=== PATIENT | male | born 1965 | race African-American/Black ===

== ENCOUNTER 2018-09-17 11:35 | Inpatient (IN) | payer OTHER ==
[2018-09-17 13:13] VITALS: BMI 26.6
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
[2018-09-17] MEDS ORDERED: IBUPROFEN 400 MG TABLET (FP) PO PRN (14:53)
[2018-09-17] MEDS ORDERED: MAGNESIUM HYDROX 2400MG/30ML ORAL SUSPENSION 30 ML CUP PO PRN (14:53)
[2018-09-17] MEDS ORDERED: P-EPHED 60MG/TRIPROLIDI 2.5MG TABLET PO PRN (14:53)
[2018-09-17] MEDS ORDERED: chlordiazePOXIDE HCL 25 MG CAPSULE PO PRN (14:53)
[2018-09-17] MEDS ORDERED: hydrOXYzine PAMOATE 25 MG CAPSULE (FP) PO PRN (14:53)
[2018-09-17] MEDS ORDERED: MAGNESIUM CITRATE 300 ML BOTTLE PO PRN (14:53)
[2018-09-17] MEDS ORDERED: guaiFENesin/D-METHORPHAN HB 10 ML UNIT-DOSE CUPS PO PRN (14:53)
[2018-09-17] MEDS ORDERED: ACETAMINOPHEN 325 MG TABLET (FP) PO PRN (14:53)
[2018-09-17] MEDS ORDERED: MENTHOL/PHENOL 1 EACH UD MM PRN (14:53)
[2018-09-17] MEDS ORDERED: LOPERAMIDE HCL 2 MG CAPSULE PO PRN (14:53)
[2018-09-17 18:10] LABS: URINE APPEARANCE SLCLOUDY; URINE BILIRUBIN NEGATIVE (<2.0 mg/dL); URINE COLOR LTYELLOW; URINE GLUCOSE (UA) NEGATIVE (NEGATIVE); URINE KETONE NEGATIVE (NEGATIVE); URINE LEUK ESTERASE 1+ (NEGATIVE); URINE NITRITE NEGATIVE (NEGATIVE); URINE PROTEIN NEGATIVE (NEGATIVE)
[2018-09-17 18:12] LABS: EPI CELLS RARE /HPF (FEW); URINE MUCUS RARE
[2018-09-17] MEDS: chlordiazePOXIDE HCL 25 MG CAPSULE PO SCH ×2 (18:36→22:50)
[2018-09-17] MEDS ORDERED: MELATONIN 5 MG TABLETS PO PRN (22:00)
[2018-09-17] MEDS: THIAMINE HCL 100 MG TABLET (FP) PO SCH (22:50)
[2018-09-17] MEDS: NICOTINE POLACRILEX 2 MG GUM BC PRN (22:52)
[2018-09-18] MEDS: chlordiazePOXIDE HCL 25 MG CAPSULE PO SCH ×4 (05:30→22:30)
[2018-09-18] MEDS: NICOTINE POLACRILEX 2 MG GUM BC PRN ×2 (05:36→10:07)
[2018-09-18] MEDS: PRENATAL VITAMINS W/ FOLIC ACID TABLET (FP) PO SCH (10:06)
[2018-09-18 10:38] LABS: HEMATOCRIT 42.7 % (35.4-49); HEMOGLOBIN 13.6 GM/dL (11.7-16.9); MCH 27.9 pg (25.7-33.7); MEAN CELL VOLUME 87.2 fl (80-96); PLATELET COUNT 332 K/MM3 (134-434); RBC 4.89 M/mm3 (4.00-5.60); WHITE BLOOD COUNT 8.6 K/mm3 (4.0-10.0)
[2018-09-18 10:40] LABS: ALBUMIN 3.3 g/dl (3.4-5.0); ALK PHOS 114 U/L (45-117); ANION GAP 9 MMOL/L (8-16); BILIRUBIN,TOTAL 0.3 mg/dL (0.2-1); BLOOD UREA NITROGEN 25 mg/dL (7-18); CHLORIDE 103 mmol/L (98-107); CO2 27 mmol/L (21-32); CREATININE 1.2 mg/dL (0.55-1.3); GLUCOSE,RANDOM 58 mg/dL (74-106); POTASSIUM 4.7 mmol/L (3.5-5.1); SGOT/AST 14 U/L (15-37); SGPT/ALT 26 U/L (13-61); SODIUM 139 mmol/L (136-145); TOT PROT 7.8 g/dl (6.4-8.2)
--- NOTE | 2018-09-18 14:43 | PN ---
S CIWA - CIWA Score Nausea/Vomitin-Mild Nausea/No Vomiting Muscle Tremors: 3 Anxiety: 2 Agitation: 2 Paroxysmal Sweats: 1-Minimal Palms Moist Orientation: 1-Uncertain about Date Tacttile Disturbances: 1-Very Mild Itch/Numbness Auditory Disturbances: 0-None Visual Disturbances: 0-None Headache: 1-Very Mild CIWA-Ar Total Score: 12 BHS Progress Note (SOAP) Subjective: tremor sweat restlessness anxiety gi distress Objective: 09/18/18 14:42 Vital Signs Temperature 97.5 F L 09/18/18 13:50 Pulse Rate 81 09/18/18 13:50 Respiratory Rate 20 09/18/18 13:50 Blood Pressure 133/89 09/18/18 13:50 O2 Sat by Pulse Oximetry (%) Laboratory Last Values WBC 8.6 K/mm3 (4.0-10.0) 09/18/18 07:10 RBC 4.89 M/mm3 (4.00-5.60) 09/18/18 07:10 Hgb 13.6 GM/dL (11.7-16.9) 09/18/18 07:10 Hct 42.7 % (35.4-49) 09/18/18 07:10 MCV 87.2 fl (80-96) 09/18/18 07:10 MCH 27.9 pg (25.7-33.7) 09/18/18 07:10 MCHC 32.0 g/dl (32.0-35.9) 09/18/18 07:10 RDW 15.0 % (11.9-15.9) 09/18/18 07:10 Plt Count 332 K/MM3 (134-434) D 09/18/18 07:10 MPV 10.0 fl (7.5-11.1) 09/18/18 07:10 Sodium 139 mmol/L (136-145) 09/18/18 07:10 Potassium 4.7 mmol/L (3.5-5.1) 09/18/18 07:10 Chloride 103 mmol/L (98-107) 09/18/18 07:10 Carbon Dioxide 27 mmol/L (21-32) 09/18/18 07:10 Anion Gap 9 MMOL/L (8-16) 09/18/18 07:10 BUN 25 mg/dL (7-18) H 12/03/18 07:10 Creatinine 1.2 mg/dL (0.55-1.3) 09/18/18 07:10 Creat Clearance w eGFR > 60 (>60) 09/18/18 07:10 Random Glucose 58 mg/dL (74-106) L 09/18/18 07:10 Calcium 9.0 mg/dL (8.5-10.1) 09/18/18 07:10 Total Bilirubin 0.3 mg/dL (0.2-1) 09/18/18 07:10 AST 14 U/L (15-37) L 09/18/18 07:10 ALT 26 U/L (13-61) 09/18/18 07:10 Alkaline Phosphatase 114 U/L (45-117) 09/18/18 07:10 Total Protein 7.8 g/dl (6.4-8.2) 09/18/18 07:10 Albumin 3.3 g/dl (3.4-5.0) L 09/18/18 07:10 Urine Color Ltyellow 09/17/18 15:33 Urine Appearance Slcloudy 09/17/18 15:33 Urine pH 6.0 (5.0-8.0) 09/17/18 15:33 Ur Specific [place] 1.015 (1.010-1.035) 09/17/18 15:33 Urine Protein Negative (NEGATIVE) 09/17/18 15:33 Urine Glucose (UA) Negative (NEGATIVE) 09/17/18 15:33 Urine Ketones Negative (NEGATIVE) 09/17/18 15:33 Urine Blood Negative (NEGATIVE) 09/17/18 15:33 Urine Nitrite Negative (NEGATIVE) 09/17/18 15:33 Urine Bilirubin Negative (<2.0 mg/dL) 09/17/18 15:33 Urine Urobilinogen 2.0 mg/dL (0.2-1.0) 09/17/18 15:33 Ur Leukocyte Esterase 1+ (NEGATIVE) H 09/17/18 15:33 Urine WBC (Auto) 12 /hpf (3-5) 09/17/18 15:33 Urine RBC (Auto) 1 /hpf (0-3) 09/17/18 15:33 Ur Epithelial Cells Rare /HPF (FEW) 09/17/18 15:33 Urine Mucus Rare 09/17/18 15:33 RPR Titer Nonreactive (NONREACTIVE) 09/18/18 07:10 lab noted Assessment: 09/18/18 14:42 withdrawal sx Plan: continue detox
[2018-09-18] MEDS: THIAMINE HCL 100 MG TABLET (FP) PO SCH (22:30)
[2018-09-19] MEDS: chlordiazePOXIDE HCL 25 MG CAPSULE PO SCH ×2 (05:33→10:31)
[2018-09-19] MEDS: NICOTINE POLACRILEX 2 MG GUM BC PRN ×3 (05:36→11:15)
[2018-09-19] MEDS: MAG HYDROX/AL HYDROX/SIMETH 30 ML UNIT-DOSE CUP PO PRN ×2 (08:57→14:38)
--- NOTE | 2018-09-19 10:21 | PN ---
S CIWA - CIWA Score Nausea/Vomitin-Mild Nausea/No Vomiting Muscle Tremors: 3 Anxiety: 1-Mildly Anxious Agitation: 2 Paroxysmal Sweats: 1-Minimal Palms Moist Orientation: 0-Oriented Tacttile Disturbances: 1-Very Mild Itch/Numbness Auditory Disturbances: 0-None Visual Disturbances: 0-None Headache: 1-Very Mild CIWA-Ar Total Score: 10 BHS Progress Note (SOAP) Subjective: tremor sweat restlessness mild gi distress Objective: 09/19/18 10:19 Vital Signs Temperature 98.2 F 09/19/18 09:10 Pulse Rate 85 09/19/18 09:10 Respiratory Rate 18 09/19/18 09:10 Blood Pressure 133/66 09/19/18 09:10 O2 Sat by Pulse Oximetry (%) Laboratory Last Values WBC 8.6 K/mm3 (4.0-10.0) 09/18/18 07:10 RBC 4.89 M/mm3 (4.00-5.60) 09/18/18 07:10 Hgb 13.6 GM/dL (11.7-16.9) 09/18/18 07:10 Hct 42.7 % (35.4-49) 09/18/18 07:10 MCV 87.2 fl (80-96) 09/18/18 07:10 MCH 27.9 pg (25.7-33.7) 09/18/18 07:10 MCHC 32.0 g/dl (32.0-35.9) 09/18/18 07:10 RDW 15.0 % (11.9-15.9) 09/18/18 07:10 Plt Count 332 K/MM3 (134-434) D 09/18/18 07:10 MPV 10.0 fl (7.5-11.1) 09/18/18 07:10 Sodium 139 mmol/L (136-145) 09/18/18 07:10 Potassium 4.7 mmol/L (3.5-5.1) 09/18/18 07:10 Chloride 103 mmol/L (98-107) 09/18/18 07:10 Carbon Dioxide 27 mmol/L (21-32) 09/18/18 07:10 Anion Gap 9 MMOL/L (8-16) 09/18/18 07:10 BUN 25 mg/dL (7-18) H 12/03/18 07:10 Creatinine 1.2 mg/dL (0.55-1.3) 09/18/18 07:10 Creat Clearance w eGFR > 60 (>60) 09/18/18 07:10 Random Glucose 58 mg/dL (74-106) L 09/18/18 07:10 Calcium 9.0 mg/dL (8.5-10.1) 09/18/18 07:10 Total Bilirubin 0.3 mg/dL (0.2-1) 09/18/18 07:10 AST 14 U/L (15-37) L 09/18/18 07:10 ALT 26 U/L (13-61) 09/18/18 07:10 Alkaline Phosphatase 114 U/L (45-117) 09/18/18 07:10 Total Protein 7.8 g/dl (6.4-8.2) 09/18/18 07:10 Albumin 3.3 g/dl (3.4-5.0) L 09/18/18 07:10 Urine Color Ltyellow 09/17/18 15:33 Urine Appearance Slcloudy 09/17/18 15:33 Urine pH 6.0 (5.0-8.0) 09/17/18 15:33 Ur Specific [place] 1.015 (1.010-1.035) 09/17/18 15:33 Urine Protein Negative (NEGATIVE) 09/17/18 15:33 Urine Glucose (UA) Negative (NEGATIVE) 09/17/18 15:33 Urine Ketones Negative (NEGATIVE) 09/17/18 15:33 Urine Blood Negative (NEGATIVE) 09/17/18 15:33 Urine Nitrite Negative (NEGATIVE) 09/17/18 15:33 Urine Bilirubin Negative (<2.0 mg/dL) 09/17/18 15:33 Urine Urobilinogen 2.0 mg/dL (0.2-1.0) 09/17/18 15:33 Ur Leukocyte Esterase 1+ (NEGATIVE) H 09/17/18 15:33 Urine WBC (Auto) 12 /hpf (3-5) 09/17/18 15:33 Urine RBC (Auto) 1 /hpf (0-3) 09/17/18 15:33 Ur Epithelial Cells Rare /HPF (FEW) 09/17/18 15:33 Urine Mucus Rare 09/17/18 15:33 RPR Titer Nonreactive (NONREACTIVE) 09/18/18 07:10 lab noted repeat ua Assessment: 09/19/18 10:21 alcohol withdrawal sx rule out uti Plan: continue alcohol detox ua ordered
[2018-09-19] MEDS: PRENATAL VITAMINS W/ FOLIC ACID TABLET (FP) PO SCH (10:31)
[2018-09-19] MEDS: ASPIRIN 81 MG CHEWABLE TABLETS PO SCH (11:14)
[2018-09-19] MEDS: RANITIDINE HCL 150 MG TABLET (FP) PO SCH ×2 (11:14→22:26)
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
[2018-09-19] MEDS: chlordiazePOXIDE 5 MG CAPSULE PO SCH ×2 (17:34→22:26)
[2018-09-19] MEDS: THIAMINE HCL 100 MG TABLET (FP) PO SCH (22:26)
[2018-09-20] MEDS: chlordiazePOXIDE 5 MG CAPSULE PO SCH ×2 (05:19→10:11)
[2018-09-20] MEDS: MAG HYDROX/AL HYDROX/SIMETH 30 ML UNIT-DOSE CUP PO PRN (05:19)
[2018-09-20] MEDS: NICOTINE POLACRILEX 2 MG GUM BC PRN ×2 (05:20→10:13)
[2018-09-20] MEDS: RANITIDINE HCL 150 MG TABLET (FP) PO SCH ×2 (10:11→23:12)
[2018-09-20] MEDS: ASPIRIN 81 MG CHEWABLE TABLETS PO SCH (10:11)
[2018-09-20] MEDS: PRENATAL VITAMINS W/ FOLIC ACID TABLET (FP) PO SCH (10:11)
[2018-09-20 10:51] LABS: URINE APPEARANCE CLEAR; URINE BILIRUBIN NEGATIVE (<2.0 mg/dL); URINE COLOR LTYELLOW; URINE GLUCOSE (UA) NEGATIVE (NEGATIVE); URINE KETONE NEGATIVE (NEGATIVE); URINE LEUK ESTERASE NEGATIVE (NEGATIVE); URINE NITRITE NEGATIVE (NEGATIVE); URINE PROTEIN NEGATIVE (NEGATIVE); URINE UROBILINOGEN NEGATIVE mg/dL (0.2-1.0)
--- NOTE | 2018-09-20 13:34 | PN ---
[facility] Progress Note (SOAP) Subjective: feeling better no tremor less sweat sleep better at night patient wants to be tested for hiv Objective: 09/20/18 13:32 Vital Signs Temperature 97.2 F L 09/20/18 09:37 Pulse Rate 85 09/20/18 09:37 Respiratory Rate 18 09/20/18 09:37 Blood Pressure 126/66 09/20/18 09:37 O2 Sat by Pulse Oximetry (%) Laboratory Last Values WBC 8.6 K/mm3 (4.0-10.0) 09/18/18 07:10 RBC 4.89 M/mm3 (4.00-5.60) 09/18/18 07:10 Hgb 13.6 GM/dL (11.7-16.9) 09/18/18 07:10 Hct 42.7 % (35.4-49) 09/18/18 07:10 MCV 87.2 fl (80-96) 09/18/18 07:10 MCH 27.9 pg (25.7-33.7) 09/18/18 07:10 MCHC 32.0 g/dl (32.0-35.9) 09/18/18 07:10 RDW 15.0 % (11.9-15.9) 09/18/18 07:10 Plt Count 332 K/MM3 (134-434) D 09/18/18 07:10 MPV 10.0 fl (7.5-11.1) 09/18/18 07:10 Sodium 139 mmol/L (136-145) 09/18/18 07:10 Potassium 4.7 mmol/L (3.5-5.1) 09/18/18 07:10 Chloride 103 mmol/L (98-107) 09/18/18 07:10 Carbon Dioxide 27 mmol/L (21-32) 09/18/18 07:10 Anion Gap 9 MMOL/L (8-16) 09/18/18 07:10 BUN 25 mg/dL (7-18) H 09/18/18 07:10 Creatinine 1.2 mg/dL (0.55-1.3) 09/18/18 07:10 Creat Clearance w eGFR > 60 (>60) 09/18/18 07:10 Random Glucose 58 mg/dL (74-106) L 09/18/18 07:10 Calcium 9.0 mg/dL (8.5-10.1) 09/18/18 07:10 Total Bilirubin 0.3 mg/dL (0.2-1) 09/18/18 07:10 AST 14 U/L (15-37) L 09/18/18 07:10 ALT 26 U/L (13-61) 09/18/18 07:10 Alkaline Phosphatase 114 U/L (45-117) 09/18/18 07:10 Total Protein 7.8 g/dl (6.4-8.2) 09/18/18 07:10 Albumin 3.3 g/dl (3.4-5.0) L 09/18/18 07:10 Urine Color Ltyellow 09/20/18 07:00 Urine Appearance Clear 09/20/18 07:00 Urine pH 5.0 (5.0-8.0) 09/20/18 07:00 Ur Specific [place] 1.013 (1.010-1.035) 09/20/18 07:00 Urine Protein Negative (NEGATIVE) 09/20/18 07:00 Urine Glucose (UA) Negative (NEGATIVE) 09/20/18 07:00 Urine Ketones Negative (NEGATIVE) 09/20/18 07:00 Urine Blood Negative (NEGATIVE) 09/20/18 07:00 Urine Nitrite Negative (NEGATIVE) 09/20/18 07:00 Urine Bilirubin Negative (<2.0 mg/dL) 09/20/18 07:00 Urine Urobilinogen Negative mg/dL (0.2-1.0) 09/20/18 07:00 Ur Leukocyte Esterase Negative (NEGATIVE) 09/20/18 07:00 Urine WBC (Auto) 12 /hpf (3-5) 09/17/18 15:33 Urine RBC (Auto) 1 /hpf (0-3) 09/17/18 15:33 Ur Epithelial Cells Rare /HPF (FEW) 09/17/18 15:33 Urine Mucus Rare 09/17/18 15:33 RPR Titer Nonreactive (NONREACTIVE) 09/18/18 07:10 lab noted Assessment: 09/20/18 13:33 mild withdrawal sx Plan: medically supervised detox
[2018-09-20] MEDS: chlordiazePOXIDE HCL 10 MG CAPSULE PO SCH ×2 (18:09→23:12)
[2018-09-20] MEDS: THIAMINE HCL 100 MG TABLET (FP) PO SCH (23:12)
[2018-09-21] MEDS: chlordiazePOXIDE HCL 10 MG CAPSULE PO SCH ×2 (05:33→05:35)
[2018-09-21] MEDS: NICOTINE POLACRILEX 2 MG GUM BC PRN (05:34)
[2018-09-21 06:34] VITALS: BP 111/66; PULSE 86; TEMP 96.8
--- NOTE | 2018-09-21 11:11 | DS ---
[facility] Detox Discharge Summary Admission Date: 09/17/18 Discharge Date: 09/21/18 - History Present History: Alcohol Dependence Additional Comments: 52 years old male admitted on 09/17/18 for alcohol withdrawal sx completed alcohol detox regimen tolerated well patient left the detox unit around 0700 the conventional mortgage underwriter did not seen nor evaluated the patient before the patient left the facility - Physical Exam Results Vital Signs: Vital Signs Temperature 96.8 F L 09/21/18 06:00 Pulse Rate 86 09/21/18 06:00 Respiratory Rate 18 09/21/18 06:00 Blood Pressure 111/66 09/21/18 06:00 O2 Sat by Pulse Oximetry (%) Pertinent Admission Physical Exam Findings: alcohol withdrawal sx Vital Signs Temperature 96.8 F L 09/21/18 06:00 Pulse Rate 86 09/21/18 06:00 Respiratory Rate 18 09/21/18 06:00 Blood Pressure 111/66 09/21/18 06:00 O2 Sat by Pulse Oximetry (%) Laboratory Last Values WBC 8.6 K/mm3 (4.0-10.0) 09/18/18 07:10 RBC 4.89 M/mm3 (4.00-5.60) 09/18/18 07:10 Hgb 13.6 GM/dL (11.7-16.9) 09/18/18 07:10 Hct 42.7 % (35.4-49) 09/18/18 07:10 MCV 87.2 fl (80-96) 09/18/18 07:10 MCH 27.9 pg (25.7-33.7) 09/18/18 07:10 MCHC 32.0 g/dl (32.0-35.9) 09/18/18 07:10 RDW 15.0 % (11.9-15.9) 09/18/18 07:10 Plt Count 332 K/MM3 (134-434) D 09/18/18 07:10 MPV 10.0 fl (7.5-11.1) 09/18/18 07:10 Sodium 139 mmol/L (136-145) 09/18/18 07:10 Potassium 4.7 mmol/L (3.5-5.1) 09/18/18 07:10 Chloride 103 mmol/L (98-107) 09/18/18 07:10 Carbon Dioxide 27 mmol/L (21-32) 09/18/18 07:10 Anion Gap 9 MMOL/L (8-16) 09/18/18 07:10 BUN 25 mg/dL (7-18) H 09/18/18 07:10 Creatinine 1.2 mg/dL (0.55-1.3) 09/18/18 07:10 Creat Clearance w eGFR > 60 (>60) 09/18/18 07:10 Random Glucose 58 mg/dL (74-106) L 09/18/18 07:10 Calcium 9.0 mg/dL (8.5-10.1) 09/18/18 07:10 Total Bilirubin 0.3 mg/dL (0.2-1) 09/18/18 07:10 AST 14 U/L (15-37) L 09/18/18 07:10 ALT 26 U/L (13-61) 09/18/18 07:10 Alkaline Phosphatase 114 U/L (45-117) 09/18/18 07:10 Total Protein 7.8 g/dl (6.4-8.2) 09/18/18 07:10 Albumin 3.3 g/dl (3.4-5.0) L 09/18/18 07:10 Urine Color Ltyellow 09/20/18 07:00 Urine Appearance Clear 09/20/18 07:00 Urine pH 5.0 (5.0-8.0) 09/20/18 07:00 Ur Specific [place] 1.013 (1.010-1.035) 09/20/18 07:00 Urine Protein Negative (NEGATIVE) 09/20/18 07:00 Urine Glucose (UA) Negative (NEGATIVE) 09/20/18 07:00 Urine Ketones Negative (NEGATIVE) 09/20/18 07:00 Urine Blood Negative (NEGATIVE) 09/20/18 07:00 Urine Nitrite Negative (NEGATIVE) 09/20/18 07:00 Urine Bilirubin Negative (<2.0 mg/dL) 09/20/18 07:00 Urine Urobilinogen Negative mg/dL (0.2-1.0) 09/20/18 07:00 Ur Leukocyte Esterase Negative (NEGATIVE) 09/20/18 07:00 Urine WBC (Auto) 12 /hpf (3-5) 09/17/18 15:33 Urine RBC (Auto) 1 /hpf (0-3) 09/17/18 15:33 Ur Epithelial Cells Rare /HPF (FEW) 09/17/18 15:33 Urine Mucus Rare 09/17/18 15:33 RPR Titer Nonreactive (NONREACTIVE) 09/18/18 07:10 lab noted - Treatment Hospital Course: Detox Protocol Followed, Detoxed Safely, Responded well, Discharged Condition Good, Rehab Referral Accepted Patient has Accepted a Rehab Referral to: [facility] - Medication Discharge Medications: Ambulatory Orders No Home Medications 02/04/13 - Diagnosis (1) Nicotine dependence Status: Acute (2) Uncomplicated alcohol dependence Status: Acute - AMA Did Patient Leave Against Medical Advice: No
== END 2018-09-21 07:15 | disposition home or self-care (01) | DRG 774 ==
LOC: YASAS 11:35 → Y6N 13:12
PROC: HZ2ZZZZ Detoxification Services for Substance Abuse Treatment (ICD-10-PCS; principal; 2018-09-17)
DX: F10.230 Alcohol dependence with withdrawal, uncomplicated (principal); F14.20 Cocaine dependence, uncomplicated; F12.20 Cannabis dependence, uncomplicated; F17.200 Nicotine dependence, unspecified, uncomplicated; F32.9 Major depressive disorder, single episode, unspecified; G47.00 Insomnia, unspecified; Z59.0 Homelessness
CPT/HCPCS: 36415; 80053; 81003; 81015; 85027; 86593; 87389